=== PATIENT | female | born 1990 | race Asian ===

== ENCOUNTER 2018-09-14 10:00 | Emergency (ER) | payer SELFPAY ==
[~2018-09-14] VITALS: Ht 160 cm; Wt 51.3 kg
[2018-09-14 11:46] VITALS: BP 124/76
== END 2018-09-14 11:46 | disposition home or self-care (01) ==
LOC: ED 10:00
DX: S61.213A Laceration without foreign body of left middle finger without damage to nail, initial encounter (principal); Z98.890 Other specified postprocedural states; Z86.2 Personal history of diseases of the blood and blood-forming organs and certain disorders involving the immune mechanism; W26.0XXA Contact with knife, initial encounter; Y93.89 Activity, other specified; Y92.89 Other specified places as the place of occurrence of the external cause; Y99.8 Other external cause status
CPT/HCPCS: 90714; J2001